=== PATIENT | male | born 1985 | race Caucasian/White ===

== ENCOUNTER 2018-06-22 21:19 | Emergency (ER) | payer MEDICAID ==
[2018-06-22 21:24] VITALS: BP 119/79
[2018-06-22] MEDS ORDERED: PROPARACAINE 0.5% 15 ML OPHT DROP ONE (21:47)
[2018-06-22] MEDS ORDERED: FLUORESCEIN SODIUM 1 MG STRIP OP ONE (21:48)
--- NOTE | 2018-06-22 22:13 | EDPHY ---
H & P Smoking Status: Current every day smoker Time Seen by Provider: 06/22/18 21:29 HPI/ROS: Chief complaint: Right eye discomfort, possible foreign body History of present illness: This is a 33-year-old male who presents to the emergency department for evaluation of right eye discomfort. He was shopping for food spices when the problem began. At one point he rubbed his eyes and that 's when the right eye discomfort began. He attempted to wash his eye out but discomfort persisted. He feels like there is a foreign body in it. Left eye unaffected. He can still see well. He wears glasses. He does not wear contacts. He has never had eye surgery. (Gabriele Kang) Physical Exam: General: Alert, nontoxic. Eyes: Mild injection of the right eye. Clear discharge. There is no subconjunctival hemorrhage. No hyphema. No hypopyon. Eyelids are everted, no foreign body appreciated. Left eye unremarkable. PERRLA. EOM intact. Skin: No periorbital erythema or edema. (Gabriele Kang) Constitutional: Initial Vital Signs Temperature (C) 36.6 C 06/22/18 21:21 Heart Rate 63 06/22/18 21:21 Respiratory Rate 16 06/22/18 21:21 Blood Pressure 119/79 06/22/18 21:21 O2 Sat (%) 98 06/22/18 21:21 O2 Delivery Mode Room Air Allergies/Adverse Reactions: No Known Allergies Allergy (Unverified 06/22/18 21:24) Home Medications: Medication Instructions Recorded NK [No Known Home Meds] 06/22/18 MDM/Departure - MDM Procedures: Procedure: Slit-lamp examination Verbal consent was obtained from the patient. Proparacaine was instilled into the eye with fluoresceine. The eye was examined with cobalt blue and white light. Multiple small speck old corneal abrasions to the lateral aspect of the eye. No foreign bodies. (Gabriele Kang) Medications Given: Discontinued Medications Polymyxin/Trimethoprim Sulfate (Polytrim Opht Drops) 1 drops RTEYE Q6HRS ARI Stop: 07/23/18 00:00 Last Admin: 06/22/18 22:30 Dose: 1 drop ED Course/Re-evaluation: Patient is seen under the supervision of my secondary supervising physician Dr. Maria Eugenia Michael. Patient presents for right eye irritation after shopping for food spices. He is nontoxic. He does appear to have multiple small corneal abrasions to the lateral aspect of his cornea. The rest of his exam is unremarkable. I will start him on Polytrim eyedrops. He is referred to ophthalmology for recheck. Symptomatic care at home is discussed. Return precautions are given. The patient voiced understanding and agreement with plan. (Gabriele Kang) The patient was evaluated and managed by the physician reproductive healthcare assistant. I have reviewed this chart and I agree with the findings and plan of care as documented , as indicated by my signature. I am the secondary supervising physician. ( Maria Eugenia Michael) Differential Diagnosis: Included but not limited to foreign body, corneal abrasion (Gabriele Kang) - Depart Disposition: Home, Routine, Self-Care Clinical Impression: Corneal abrasion Condition: Good Instructions: Corneal Abrasion (ED) Additional Instructions: Follow-up with an eye doctor on Sunday for recheck Use eye antibiotic drops, 1 drop in the right eye every 6 hr for 7 days If symptoms worsen or new symptoms develop return to the emergency department for recheck Referrals: NONE *PRIMARY CARE P,. [Primary Care Provider] - As per Instructions Ashok Beck MD [Medical Doctor] - As per Instructions
[2018-06-23] MEDS ORDERED: POLYMYXIN B SULFATE/TMP 10 ML OPHT.BTL RTEYE SCH
== END 2018-06-22 22:50 | disposition home or self-care (01) ==
DX: S05.01XA Injury of conjunctiva and corneal abrasion without foreign body, right eye, initial encounter (principal); Y93.89 Activity, other specified; Y92.512 Supermarket, store or market as the place of occurrence of the external cause